=== PATIENT | female | born 1985 | race Caucasian/White ===

== ENCOUNTER 2018-02-12 16:08 | Observation (INO) | payer MEDICAID | END 2018-02-12 17:20 | disposition home or self-care (01) | LOC: LDH 16:08 | DX: O62.9 Abnormality of forces of labor, unspecified (principal); O99.513 Diseases of the respiratory system complicating pregnancy, third trimester; J45.909 Unspecified asthma, uncomplicated; O99.283 Endocrine, nutritional and metabolic diseases complicating pregnancy, third trimester; E03.9 Hypothyroidism, unspecified; Z3A.38 38 weeks gestation of pregnancy; Z79.899 Other long term (current) drug therapy | CPT/HCPCS: G0378 ×2 ==